=== PATIENT | female | born 1955 | race Caucasian/White ===

== ENCOUNTER 2025-02-13 16:21 | Observation (INO) | payer MEDICARE, SELFPAY ==
[2025-02-13] VITALS (11 sets, daily range): BP systolic 126–224; BP diastolic 59–106; PULSE 59–95; RESP 10–20; TEMP 36.1–36.8; O2SAT 93–99; BMI 23.9
--- NOTE | 2025-02-13 19:23 | P.HP_ITS ---
History of Present Illness History of Present Illness Date Patient Seen: 02/13/25 Time Patient Seen: 19:23 Chief complaint: Transfer from [facility] ED Narrative: [place] [facility] with an internal hernia on CT scan. Over the past 6 months the patient has had increasing symptoms of abdominal cramps. At 2:00 a.m. this morning she had such severe pain throughout her abdomen she presented to the emergency room. CT scan shows a very interesting finding in that her proximal jejunum appears to be involved with an internal hernia. The mesentery is edematous. The small bowel does not have an obstructive pattern and you can see the vasculature intact. The patient states that she has had nausea and the desire to vomit. Her stool and flatus are markedly reduced. Her blood pressure has been high as well that potentially could be related to her pain. She had a colonoscopy and never it about a year and a half ago that was only remarkable for polyps. She states that she has had tachycardia recently as well for unknown reason. She felt hot last night but denies objective fever. She denies blood in her stool. Her only abdominal surgery has been C-sections. [facility] Social History Smoking Status: Never smoker alcohol intake: current Meds Home Medications and Allergies Home Medications ?Medication ?Instructions ?Recorded ?Confirmed ?Type timolol maleate 0.5 % eye drops 1 drp EYE-BOTH BID 05/0202/13/25 History Exam Vital Signs (past 8 hours): - 02/13/25 18:45 Oxygen Delivery Method Room Air Oxygen Delivery Method Room Air Const Orientation: alert and oriented x3 Eyes Visual John: normal visual john by confrontation Conjunctivae: conjunctivae normal Sclera: sclerae normal EOM: EOM intact bilaterally Resp Effort & Inspection: normal respiratory effort Auscultation: clear to auscultation bilaterally Cardio Rate: regular rate Rhythm: regular rhythm GI Other: Abd distended, +tympany in LUQ, pain to palpation in LUQ, non-peritoneal, but significantly tender. Extrem Other: Without pitting edema Assessment & Plan Assessment and plan (1) Internal hernia: Status: Acute Plan Internal hernia Unusual presentation. Whereas the small bowel in the hernia does not have an obstructive pattern and appears viable, the mesentery is edematous and she is quite symptomatic. She is supposed to travel to [facility] in 3 days so we di scussed this will likely alter that trip. Non-operative management is not likely to resolve this. The concern is this process has progressed over the past 6 months and she is at risk for strangulation and/or obstruction. We discussed the option of diagnostic laparoscopy, possible open. PSH only significant for 2 C- sections. It is possible this is an adhesive band process although unusual presentation. She is aware of the possibility of an open incision and bowel resection. The risks, benefits and options regarding the procedure were explained to the patient in detail. Risk discussion included but not limited to: open incision, bowel injury, bowel resection, infection, bleeding. The patient was encouraged to ask questions and they were answered to their satisfaction. The patient understands and is agreeable to proceed. Time-Based Coding :: [TOTAL MINUTES] spent with patient and on the chart (including review of chart, obtaining history, exam, reviewing outside data, placing orders, documenting exam and treatment plan, and counseling patient) on [DATE]. PROFEE Product Applications Scientist Document charge(s): Yes Charge Codes Initial inpatient/observation care: [id number]
[2025-02-13] MEDS: LACTATED RINGERS 1,000 ML 42 ML IV ×2 (19:59→21:17)
[2025-02-13] MEDS: CLINDAMYCIN 600 MG/50 ML PIGGYBACK 50 MG IV (20:15)
[2025-02-13] MEDS: ACETAMINOPHEN IV 1,000 MG/100 ML VIAL 400 MG IV (20:16)
--- NOTE | 2025-02-13 20:27 | SUR.OPER ---
Supine on padded OR bed, head on pillow, arms padded and tucked at sides, legs uncrossed, safety belt at thigh, tape over blanket over lower legs .
[2025-02-13] MEDS: BUPIVACAINE 0.25% W/ EPI 30 ML VIAL 60 ML INJ (20:35)
--- NOTE | 2025-02-13 20:55 | EKG_ITS ---
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
--- NOTE | 2025-02-13 21:54 | PM.OP.1 ---
Operative Date/Time/Diagnoses Date of procedure: 02/13/25 Time of procedure: 21:54 Pre-op diagnosis: Internal hernia Post-op diagnosis: same Procedure & Clinicians Procedure: Diagnostic laparoscopy, reduction internal hernia, oversew defect Same procedure(s) as scheduled: Yes Indications: 69yo F with internal hernia on CT with mesenteric edema, clinical obstruction Surgeon: Terrance Rubio Click Yes if Unassisted: Yes Anesthesia Type: General Operative Notes Findings: Internal hernia through transverse colon mesentery near splenic flexure with half of proximal small bowel through the small defect. Reduced and defect oversewn. No ischemic small bowel. Closure Type: primary Specimen(s): none sent Applied: none Estimated Blood Loss (mL): 20 Blood products transfused: none Procedure in detail: After informed consent and satisfactory general endotracheal anesthesia the abdomen was prepped and draped in the usual sterile manner. Surgical time-out was performed to ensure we had the proper patient, position and procedure with all team members in agreement. I utilized the Mahoney direct trocar cutdown technique via a supraumbilical midline incision. An 0 Vicryl ovjiys-az-etvuo suture was placed in a small fascial incision. The peritoneal cavity was entered under direct vision. The 12 mm Mahoney trocar was inserted and the peritoneal cavity was insufflated to a pressure of 15 mmHg with carbon dioxide gas. The 5 mm 30 degree lens was inserted and no trauma secondary to the trocar insertion was noted. The patient had minimal omental adhesions to the lower midline incision and these were easily taken down by incising a clear thin filmy layer with Metzenbaum scissors. I performed laparoscopic TAP blocks by injecting 25 cc of 0.25% Marcaine with epinephrine into the transversus abdominis muscle bilaterally under laparoscopic vision. The additional 10cc of local was injected into the skin before the trocar incisions were made. Two 5 mm trocars were inserted on the right side, 1 right subcostal, 1 in the right lower quadrant. We ultimately needed an additional 5 mm trocar that was placed in the low midline healed incision. We used various degrees of Trendelenburg, reverse Trendelenburg, right side up, left side up position for gravity retraction of the viscera. Ultimately we determined that she had a hole in her transverse colon mesentery proximal to the splenic flexure and half of her small bowel had herniated through this defect. I used atraumatic graspers to very gently reduce the hernia and it was not very tight so this was easy to do without injury to the bowel. Once this was reduced, I oversewed the resulting defect in the mesentery using 3-0 silk suture on an SH needle and this closed the defect nicely. I then ran the small bowel from the ligament of Treitz to the terminal ileum and there was mild dilation proximally and then entered a point of distal collapse but this transition point was not ischemic and there was no adhesive band here. This transition point was at the rim of the mesenteric defect. There were no other adhesions identified. We had placed an orogastric tube in the operating room and the stomach was decompressed. Given the mild dilation of the bowel and the fact that the area of relative obstruction was resolved, I felt it reasonable to discontinue the nasogastric tube in the operating room. There was no evidence for ischemic bowel. There was no injury to the bowel throughout the procedure. The trocars were then removed under direct vision and there was no bleeding noted at the trocar sites. The 0 Vicryl iohdqu-qc-[id number] fascial suture was tied and there were no palpable fascial defects. The skin incisions were closed using 4-0 Monocryl in a subcuticular manner. Dermabond glue was applied as a final dressing. The instrument sponge and needle counts were all correct x2. The estimated blood loss was minimal. Complications: none Post-operative Condition: stable Disposition: PACU
[2025-02-14 00:20] VITALS: BP 122/59; PULSE 72; RESP 18; TEMP 35.9; O2SAT 95
[2025-02-14] MEDS: KETOROLAC 30 MG/ML VIAL IV (00:47)
[2025-02-14] MEDS: LACTATED RINGERS 1,000 ML 125 ML IV (00:56)
[2025-02-14 01:20] VITALS: BP 100/47; PULSE 74; RESP 18; TEMP 36.3; O2SAT 94
[2025-02-14 05:35] VITALS: BP 124/67; PULSE 62; RESP 18; TEMP 36.1; O2SAT 97
[2025-02-14 05:42] LABS: Add Manual Diff / Slide Review NO; Hematocrit 37.1 % (36-46); Hemoglobin 12.9 g/dL (12.0-16.0); Lymphocytes Absolute Auto 900 /uL (1100-4500); Mean Corpuscular HGB Conc 34.9 % (30-36); Mean Corpuscular Hemoglobin 31.3 PG (26-34); Mean Corpuscular Volume 89.9 fL (80-100); Platelet Count 250 X10^3/uL (150-400)
[2025-02-14 05:55] LABS: Blood Urea Nitrogen 13 mg/dL (7-17); Calcium 9.1 mg/dL (8.4-10.2); Carbon Dioxide 19 mmol/L (22-32); Chloride 101 mmol/L (98-107); Estimated Glomerular Filt Rate > 60 mL/min (>60); Glucose 170 mg/dL (70-99); HEMOLYSIS < 15 (0-50); Magnesium 2.0 mg/dL (1.6-2.3); Potassium 4.1 mmol/L (3.4-5.1); Sodium 131 mmol/L (137-145)
[2025-02-14] MEDS: SIMETHICONE 80 MG TABLET PO ×3 (06:52→12:45)
[2025-02-14] MEDS: MAGNESIUM HYDROXIDE 30 ML UDC PO (06:52)
--- NOTE | 2025-02-14 06:52 | PM.PN.IH.1 ---
Subjective Subjective Date Patient Seen: 02/14/25 Time Patient Seen: 06:52 Interval history: POD#1 laparoscopic internal hernia reduction, oversew defect No c/o +flatus No n/v overnight Tolerated clear liquids Exam Vital Signs (past 8 hours): - 02/13/25 23:20 02/14/25 00:20 02/14/25 01:20 Temperature 96.9 F L 96.6 F L 97.3 F L Pulse Rate 77 72 74 Respiratory Rate 18 18 18 Blood Pressure 129/62 122/59 L 100/47 L Pulse Oximetry 94 95 94 Oxygen Flow Rate 0 0 0 02/14/25 05:35 Temperature 96.9 F L Pulse Rate 62 Respiratory Rate 18 Blood Pressure 124/67 Pulse Oximetry 97 Oxygen Flow Rate 0 Oxygen Delivery Method Room Air Oxygen Flow Rate 0 Const General: comfortable Orientation: alert and oriented x3 Resp Effort & Inspection: normal respiratory effort Cardio Rate: regular rate GI Other: Incisions CDI, appropriate tenderness for postop Extrem Other: Without pitting edema Objective Labs 02/14/25 05:00 02/14/25 05:00 Labs: Laboratory Results - last 24 hr 02/14/25 05:00 WBC 12.0 H RBC 4.13 Hgb 12.9 Hct 37.1 MCV 89.9 MCH 31.3 MCHC 34.9 RDW 13.4 Plt Count 250 Neut % (Auto) 88.4 H Lymph % (Auto) 7.3 L [place] % (Auto) 4.1 Eos % (Auto) 0.0 L Baso % (Auto) 0.2 Neut # (Auto) 12316 H Lymph # (Auto) 900 L [place] # (Auto) 500 Eos # (Auto) 0 Baso # (Auto) 0 Sodium 131 L Potassium 4.1 Chloride 101 Carbon Dioxide 19 L BUN 13 Creatinine 0.88 Estimated GFR > 60 BUN/Creatinine Ratio 14.8 Glucose 170 H Calcium 9.1 Magnesium 2.0 PFSH Social History Smoking Status: Never smoker alcohol intake: current Assessment & Plan Assessment and plan (1) Internal hernia: Status: Acute Assessment & Plan narrative: POD#1 laparoscopic reduction internal hernia, oversew defect Tolerating clears Small bowel without obstructive pattern Regular diet Likely home today Time-Based Coding :: [TOTAL MINUTES] spent with patient and on the chart (including review of chart, obtaining history, exam, reviewing outside data, placing orders, documenting exam and treatment plan, and counseling patient) on [DATE]. PROFEE Java Spring Developer Document charge(s): Yes Charge Codes Subsequent inpatient/observation care: [id number]
[2025-02-14 08:36] VITALS: BP 121/58; PULSE 57; RESP 16; TEMP 36.2; O2SAT 96
[2025-02-14] MEDS: TIMOLOL 0.5% OPHTH 1 DROPS EYE-BOTH (09:01)
--- NOTE | 2025-02-14 11:06 | CM.DANOTE ---
Initial DCP Assessment Note Pt is a 69 yo female, resident of [facility], [place] [facility]. Patient has been discharged home today ; patient has international travel plans this weekend. PCP: Dr Mccall (sp?) [facility] Payer: [employer]AT [employer]IR[employer] Reviewed chart, pt discussed in multidisciplinary rounds this morning. Patient lives independently with spouse and plans to return. No stated needs. Therapy has cleared pt for return home w/family to assist and pt has planned for home, DC order from Ortho has already been initiated this morning. No barriers identified at this time to patient's safe discharge home w/family to assist; close outpatient f/u recommended. Social work team will plan to follow clinical course closely in case any DC needs or concerns arise. SERA Almeida Discharge Planning/Care Management CM Discharge Assessment Start: 02/13/25 16:48 Freq: Status: Active Protocol: Document 02/14/25 11:02 MALGORZATA (Rec: 02/14/25 11:06 MALGORZATA [id number]) Discharge Planning Assessment Assigned Discharge SERA Rico Cigarette Package Examiner DPOA/Assigned Sonny Acevedo spouse Designee Name Contact Information [phone] Advance Directives? No: Full Code History Provided By Patient Prior Living House Arrangements Household Members spouse Type of Drives own vehicle transporation used prior to admit Independent with ADL Yes 's Is patient alert and Yes oriented? Comment Completely Indp w/all ADLs Comment Home Barriers to No Discharge Discharge Plan Home Transportation Family Arrangement Referrals Initiated None needed
--- NOTE | 2025-02-14 11:14 | CM.DANOTE ---
Initial DCP Assessment Note Pt is a 69 yo female, resident of [facility], transferred from [facility] for hernia repair. PCP: Dr Mccall (sp?) [facility] Payer: T[employer]AT VIRGEN Reviewed chart, pt discussed in multidisciplinary rounds this morning. Patient lives independently with spouse in [facility], patient has international travel plans starting this weekend. Patient discharged home today with no identified needs. No barriers identified at this time to patient's safe discharge home w/family to assist; close outpatient f/u recommended. Social work team will plan to follow clinical course closely in case any DC needs or concerns arise. SERA Almeida Discharge Planning/Care Management CM Discharge Assessment Start: 02/13/25 16:48 Freq: Status: Active Protocol: Document 02/14/25 11:02 MALGORZATA (Rec: 02/14/25 11:06 MALGORZATA [id number]) Discharge Planning Assessment Assigned Discharge SERA Rico Fashion Merchandiser DPOA/Assigned Sonny Acevedo, spouse Designee Name Contact Information [phone] Advance Directives? No: Full Code History Provided By Patient Prior Living House Arrangements Household Members spouse Type of Drives own vehicle transporation used prior to admit Independent with ADL Yes 's Is patient alert and Yes oriented? Comment Completely Indp w/all ADLs Comment Home Barriers to No Discharge Discharge Plan Home Transportation Family Arrangement Referrals Initiated None needed
== END 2025-02-14 13:36 | disposition home or self-care (01) ==
PROVIDERS: Admitting Provider Surgery; Referring Provider Surgery; Visit Provider Surgery
PROC: (CPT 49320; principal; 2025-02-13 20:00)
DX: K46.9 Unspecified abdominal hernia without obstruction or gangrene (principal)
CPT/HCPCS: 49593; 36415; 80048; 82962; 83735; 85025; 93005; 93010; G0378; G0379; J0131; J0330; J0360; J1100; J1171; J1885; J2405; J2704; J3010; J3490